=== PATIENT | male | born 1975 | race Two or more races ===

== ENCOUNTER 2023-05-04 17:53 | Emergency (ER) | payer OTHER ==
[~2023-05-04] VITALS: Ht 170.2 cm; Wt 65.8 kg
[2023-05-04] MEDS ORDERED: SERTRALINE HCL25 MG PO (18:13)
[2023-05-04] MEDS ORDERED: NAPROXEN500 MG PO ×2 (21:45→21:46)
== END 2023-05-04 21:59 | disposition home or self-care (01) ==
LOC: ER 17:53
DX: M67.813 Other specified disorders of tendon, right shoulder (principal); M25.511 Pain in right shoulder; Z88.8 Allergy status to other drugs, medicaments and biological substances

== ENCOUNTER 2023-11-09 16:25 | Emergency (ER) | payer OTHER ==
[~2023-11-09] VITALS: Ht 170.2 cm; Wt 64.4 kg
[~2023-11-09 16:25] MED LIST: NAPROXEN500 MG PO; SERTRALINE HCL25 MG PO
[2023-11-09] MEDS ORDERED: DEXAMETHASONE SODIUM PHOSPHATE 4 MG/ML VIAL IM ONE (21:15)
[2023-11-09] MEDS ORDERED: KETOROLAC TROMETHAMINE 60 MG VIAL IM ONE (21:15)
[2023-11-09] MEDS ORDERED: ORPHENADRINE CITRATE 30 MG/ML AMPUL IM ONE (21:15)
== END 2023-11-09 23:29 | disposition home or self-care (01) ==
LOC: ER 16:25
DX: M25.512 Pain in left shoulder (principal); Z88.6 Allergy status to analgesic agent